=== PATIENT | male | born 1955 | race Caucasian/White ===

== ENCOUNTER → 2016-12-18 | Outpatient (CLI) | payer OTHER ==
--- NOTE | 2016-12-18 18:11 | DX ---
Right first toe - 3 views Indication: Pain at the first PIP joint. No trauma. Comparison: None. Findings: The normally mineralized bones are anatomically aligned. Minimal osteoarthritis of the firs t interphalangeal joint is evidenced by minimal eccentric joint space narrowing, small subcortical cy sts, subchondral sclerosis, and small osteophytes emanating off the medial joint line. No soft tissue calcification. The first metatarsophalangeal joint space is well preserved. 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
== END ==
LOC: BMCIMAGING 16:41
PROVIDERS: ATTEND Internal Medicine
DX: M79.674 Pain in right toe(s) (principal)